=== PATIENT | female | born 1995 | race African-American/Black ===

== ENCOUNTER → 2018-03-10 | Outpatient (CLI) | payer OTHER ==
[2016-01-05 10:20] VITALS: BP 125/79
--- NOTE | 2018-03-10 12:51 | KCIC ---
Pelvis and left hip radiograph 03/10/2018 12:00 AM INDICATION: Left hip pain COMPARISON: None available. TECHNIQUE: AP view the pelvis and 2 dedicated views the left hip are provided. FINDINGS: There is no acute fracture or dislocation. Well marginated sclerotic density is identified involving the left femoral neck measuring 8 mm suggestive of a bone island. Bone mineralization is within normal limits. Joint spaces are maintained. Regional soft tissues are within normal limits. There is no soft tissue gas or osseous erosion. IMPRESSION: No acute fracture or dislocation. Well marginated sclerotic density is identified involving the left femoral neck measuring 8 mm suggestive of a bone island. Electronically signed by: Kaity Neville MD (03/10/2018 12:47 PM) [id number]
== END | disposition home or self-care (01) ==
LOC: KCIC 11:12
PROVIDERS: ATTEND Nurse Practitioner Family
DX: M25.552 Pain in left hip (principal)
CPT/HCPCS: 73502